=== PATIENT | male | born 1935 | race African-American/Black ===

== ENCOUNTER 2016-07-25 18:51 | Emergency (ER) | payer OTHER, BC ==
[~2016-07-25 18:51] MED LIST: ASAB PO; ASMANEX INH; ATV1 PO; BP MED; CETIRIZINE HCL5 MG PO; DUONEB INH; INHALER; LIPITOR40 PO; LOP25 PO; LOP50 PO; MULTIVIT/MIN PO; MULTIVITAMI1 PO; NITROQUICK0.4 MG SL; NORV10 PO; PROAIR HFA INH; PROVENTSOL INH; PROVHFA INH; REM15 PO; SPIRIVA INH; UROXATRAL PO; VASOTEC10 PO; ZOCOR40 PO
[2016-07-25 19:18] LABS: BASOPHILS 0.2 %; BASOPHILS ABSOLUTE 0.02 10/3/uL (0.0-0.16); EOSINOPHILS 5.8 %; EOSINOPHILS ABSOLUTE 0.49 10/3/uL (0.0-0.53); HEMOGLOBIN 14.7 g/dL (13.6-17.8); IMMATURE GRANULOCYTES 0.4 %; IMMATURE GRANULOCYTES ABSOLUTE 0.03 10/3/uL (0.0-0.11); LYMPHOCYTES 22.5 %; LYMPHOCYTES ABSOLUTE 1.89 10/3/uL (0.67-4.30); MEAN CORPUS HGB CONC 33.9 g/dL (32.0-36.0); MEAN CORPUSCULAR HEMOGLOB 32.5 pg (26.0-34.0); MEAN CORPUSCULAR VOLUME 95.6 fL (80-100); MEAN PLATELET VOLUME 11.2 fL (9.2-13.0); MONOCYTES 7.7 %; MONOCYTES ABSOLUTE 0.65 10/3/uL (0.21-1.20); NEUTROPHILS 63.4 %; NEUTROPHILS ABSOLUTE 5.31 10/3/uL (2.02-8.40); PLATELET COUNT 182 10/3/uL (150-400); RBC DISTRIBUTION WIDTH 15.1 % (12.0-16.0); RED CELL COUNT 4.53 10/6/uL (4.7-6.1); WHITE BLOOD CELLS 8.4 10/3/uL (4.5-10.5)
[2016-07-25 19:21] LABS: HEMATOCRIT 43.3 % (40.0-51.0); MANUAL DIFF NO %
[2016-07-25 19:35] LABS: BUN (BLOOD UREA NITROGEN) 19 MG/DL (6-23); CALCIUM, SERUM 9.2 MG/DL (8.5-10.4); CHEST PAIN PROFILE TAT 0 Hrs 21 Mins; CHLORIDE, SERUM 105 MMOL/L (96-112); CO2 (CARBON DIOXIDE) 29 MMOL/L (24-34); CREATININE 1.45 MG/DL (0.70-1.30); GFR AFRICAN AMERICAN 53 ML/MIN (>=60); GFR NON AFRICAN AMERICAN 45 ML/MIN (>=60); POTASSIUM, SERUM 3.4 MMOL/L (3.5-5.3); SODIUM, SERUM 144 MMOL/L (135-148); TROPONIN I <0.02 NG/ML (<0.05)
[2016-07-25 19:37] LABS: GLUCOSE, SERUM 59 MG/DL (60-99)
[2016-07-25 19:42] LABS: PLATELET ESTIMATE ADQ (ADEQUATE); SPHEROCYTES FEW (3-10/OIF)
[2016-08-15] MEDS ORDERED: P10 PO (12:32)
[2016-08-15] MEDS ORDERED: PULRESP.5 INH (12:36)
[2016-08-15] MEDS ORDERED: BROVANA15 MCG INH (12:38)
[2016-09-16] MEDS ORDERED: P20 PO (16:48)
== END 2016-07-25 20:16 | disposition left against medical advice (07) ==
LOC: ER 18:51
PROVIDERS: Emergency Medicine
DX: R06.02 Shortness of breath (principal); Z53.21 Procedure and treatment not carried out due to patient leaving prior to being seen by health care provider
CPT/HCPCS: 71020; 80048; 83735; 83880; 84484; 85025; 85610; 85730; 93005

== ENCOUNTER 2016-07-26 19:09 | Emergency (ER) | payer BC, OTHER ==
[2016-07-26 17:36] LABS: INSTRUMENT SERIAL # 8087; PCO2 (CO2 TENSION) 42 MMHG (35-45); PO2 (O2 TENSION) 65 MMHG (79-93); pH 7.42 (7.37-7.43)
[2016-07-26 17:37] LABS: ALLENS TEST Pos; BE (BASE EXCESS) 1.7 MEQ/L (0 +/- 2.5); CARBOXYHEMOGLOBIN 1.6 % (0-3); HCO3 (ACTUAL BICARBONATE) 26.4 MEQ/L (23-27); HEMOBLOGIN CONTENT 13.6 G/DL (14-18); METHEMOGLOBIN 0.4 % (0-3); O2 CONTENT 17.4 VOL% (18-24); SAMPLE Arterial
[2016-07-26 18:25] LABS: BASOPHILS 0.3 %; BASOPHILS ABSOLUTE 0.03 10/3/uL (0.0-0.16); EOSINOPHILS 2.8 %; EOSINOPHILS ABSOLUTE 0.28 10/3/uL (0.0-0.53); ER CBC TAT 0 Hrs 03 Mins; HEMATOCRIT 41.3 % (40.0-51.0); HEMOGLOBIN 13.7 g/dL (13.6-17.8); IMMATURE GRANULOCYTES 0.3 %; IMMATURE GRANULOCYTES ABSOLUTE 0.03 10/3/uL (0.0-0.11); LYMPHOCYTES 12.4 %; LYMPHOCYTES ABSOLUTE 1.25 10/3/uL (0.67-4.30); MEAN CORPUS HGB CONC 33.2 g/dL (32.0-36.0); MEAN CORPUSCULAR HEMOGLOB 32.2 pg (26.0-34.0); MEAN CORPUSCULAR VOLUME 97.2 fL (80-100); MONOCYTES 3.5 %; MONOCYTES ABSOLUTE 0.35 10/3/uL (0.21-1.20); NEUTROPHILS 80.7 %; NEUTROPHILS ABSOLUTE 8.17 10/3/uL (2.02-8.40); PLATELET COUNT 203 10/3/uL (150-400); RBC DISTRIBUTION WIDTH 15.3 % (12.0-16.0); RED CELL COUNT 4.25 10/6/uL (4.7-6.1); WHITE BLOOD CELLS 10.1 10/3/uL (4.5-10.5)
[2016-07-26 18:27] LABS: MANUAL DIFF NO %
[2016-07-26 18:38] LABS: BUN (BLOOD UREA NITROGEN) 20 MG/DL (6-23); CALCIUM, SERUM 8.9 MG/DL (8.5-10.4); CHLORIDE, SERUM 108 MMOL/L (96-112); CO2 (CARBON DIOXIDE) 27 MMOL/L (24-34); CREATININE 1.36 MG/DL (0.70-1.30); GFR AFRICAN AMERICAN 57 ML/MIN (>=60); GFR NON AFRICAN AMERICAN 49 ML/MIN (>=60); POTASSIUM, SERUM 3.5 MMOL/L (3.5-5.3); SODIUM, SERUM 143 MMOL/L (135-148)
[2016-07-26 18:42] LABS: GLUCOSE, SERUM 85 MG/DL (60-99)
[2016-08-15] MEDS ORDERED: P10 PO (12:32)
[2016-08-15] MEDS ORDERED: PULRESP.5 INH (12:36)
[2016-08-15] MEDS ORDERED: BROVANA15 MCG INH (12:38)
[2016-09-16] MEDS ORDERED: P20 PO (16:48)
== END 2016-07-26 20:06 | disposition home or self-care (01) ==
LOC: ER 19:09
PROVIDERS: Emergency Medicine
DX: J44.9 Chronic obstructive pulmonary disease, unspecified (principal); F17.200 Nicotine dependence, unspecified, uncomplicated; I10 Essential (primary) hypertension; Z95.1 Presence of aortocoronary bypass graft; Z79.899 Other long term (current) drug therapy
CPT/HCPCS: 71010; 80048; 82805; 85025; 99285

== ENCOUNTER 2016-08-05 17:41 | Inpatient (IN) | payer BC, OTHER ==
--- NOTE | ~2016-08-05 | DS ---
Discharge Summary [facility] [address] [place]. [address] NAME: NAZ AMIN : 36 STATUS : DIS IN PAT#: [id number] AGE: 80 ADM/REG DATE : 08/05/16 MR#: [id number] REPORT SERV DATE: 08/09/16 DICTATED BY: ELIJAH MURRELL DATE: 08/08/16 REPORT STATUS : Draft TRANSCRIBED BY: MODL DATE: 08/08/16 ADMISSION DATE: 08/05/2016 DISCHARGE DATE: 08/08/2016 DISCHARGE DIAGNOSES: 1. Acute exacerbation of chronic obstructive pulmonary disease. 2. Chronic diastolic heart failure. 3. Right ventricular dysfunction by echocardiography. 4. Systemic hypertension. 5. Dementia with behavior disorder. 6. Coronary artery disease, post CABG. 7. History of prostate cancer, post radiation therapy. 8. Remote stroke. OPERATIONS AND PROCEDURES: None. PRESENT ILLNESS: This is a 80-year-old male, who was triaged in the emergency room on 08/05/2016 at 1541 hours, complaining of shortness of breath. After evaluation in the emergency room, he was thought to have a COPD exacerbation. He was referred to the Hospitalist Service for admission. He was seen by Dr. Botello. He was admitted as described on admission history and physical examination. ADDITIONAL HISTORY: Per Dr. Botello. PHYSICAL EXAMINATION: Per Dr. Botello. ADMISSION LABORATORY: Per Dr. Botello. HOSPITAL COURSE: He was admitted with an acute exacerbation of COPD. Of note was that in the emergency room with the DuoNeb and IV Solu-Medrol, he was symptomatically improved. It was felt that further in-hospital treatment was needed. He was admitted to [address] [place] [address]. His hospital care was assumed by the undersigned. An echocardiogram had been ordered on admission. When reviewed by the undersigned on 08/06/2016, it was noted that he had normal left ventricular systolic function. Mild diastolic function with a mildly enlarged right ventricle and mildly decreased systolic function. In view of these findings and his presentation, it was felt he should be evaluated for pulmonary emboli. A CTA chest was done, which showed no CT evidence of pulmonary embolus, mild to moderate centrilobular emphysema, upper lung zones, but no acute pulmonary disease. Of note was that motion degraded optimal exam. Medications initiated on admission including DuoNeb, Levaquin, and corticosteroids were continued. Discharge Summary [address] [place]. [address] NAME: NAZ AMIN : 36 STATUS : DIS IN PAT#: [id number] AGE: 80 ADM/REG DATE : 08/05/16 MR#: [id number] REPORT SERV DATE: 08/09/16 DICTATED BY: ELIJAH MURRELL DATE: 08/08/16 REPORT STATUS : Draft TRANSCRIBED BY: MODEstrella DATE: 08/08/16 By 08/08/2016, his dyspnea had improved, and he was felt to be back to his baseline state. His son was present, who cares for him. At this point of his hospitalization, it was felt that he had achieved a level of improvement and stability, and could be safely discharged home to the care of his son. He has in-home care, which will be continued. He will continue his home diet and activity. Medications at discharge will be aspirin 81 mg daily, Zyrtec 5 mg daily, Remeron 7.5 mg at bedtime, metoprolol 12.5 mg at bedtime, Combivent Respimat one puff four times daily, Ativan 1 mg at bedtime, DuoNeb q.i.d. as needed, Asmanex 2 puffs at bedtime, Levaquin 750 mg on Monday. His son plans to pursue [facility] and the [facility] to enhance the care for his father. Discharge time greater than 30 minutes. DD/NINA Elijah Murrell M.D. / [id number] CC: DO Lizette Escamilla
--- NOTE | ~2016-08-05 | HP ---
History And Physical [place] [id number] [facility], [place]. [address] NAME: NAZ AMIN : 36 STATUS : ADM IN PAT#: [id number] AGE: 80 ADM/REG DATE : 08/05/16 MR#: [id number] REPORT SERV DATE: 08/06/16 DICTATED BY: SAMMY SHETTY DATE: 08/05/16 REPORT STATUS : Draft TRANSCRIBED BY: NINA DATE: 08/05/16 DATE OF ADMISSION: 08/05/2016 CHIEF COMPLAINT: Shortness of breath. HISTORY OF PRESENT ILLNESS: This is a 80-year-old male who presented to the emergency room department with complaints of shortness of breath. The patient was brought to the emergency room by his grandson given concern of worsening shortness of breath. The patient has advanced dementia and is a poor historian. The rest of the H and P was from the patient's grandson as well as [employer] review. The patient was in his usual health until about a few weeks ago when family member noticed that the patient was complaining of intermittent shortness of breath with exertion and at rest. It was noted that the patient was using his albuterol nebulizer more frequently than usual. It was also noted that the patient continues to smoke cigarettes about two to three sticks a day. There was report of intermittent cough but denies any wheezing. No chest pain. No fever. No chills. Family members denies any bilateral leg swelling, orthopnea, PND, weight gain, presyncopal, palpitations, or syncopal episode. On arrival to the ER, the patient was noted to be having some dyspnea with diffuse wheezing and ABG was done that shows the patient was mildly hypoxic at PaO2 of 72. The patient received IV Solu-Medrol and DuoNeb with significant relief. At the time of my evaluation, the patient had no further episodes of wheezing, no further episodes of shortness of breath. PAST MEDICAL HISTORY: 1. Significant for COPD with ongoing tobacco use. 2. History of coronary artery disease with CABG. 3. Hypertension. SOCIAL HISTORY: The patient has continued to smoke heavily at home. The patient denies any recreational or illicit drug use. The patient currently lives with his grandson, who provides 24 hours care for him. FAMILY HISTORY: Denies any history of hypertension and diabetes in the family. ALLERGIES: ADVERSE REACTION TO SEROQUEL. MEDICATION LIST: 1. Lorazepam 1 mg p.o. at bedtime. 2. Mirtazapine 15 mg p.o. at bedtime. 3. Zyrtec 5 mg p.o. at bedtime. 4. Lopressor 25 mg p.o. at bedtime. 5. Aspirin 81 mg p.o. at bedtime. 6. DuoNeb inhaler three times daily. 7. Combivent inhaler one puff four times a day. 8. two puffs at bedtime. History And Physical [address] [address] NAME: NAZ AMIN : 36 STATUS : ADM IN [facility]#: [id number] AGE: 80 ADM/REG DATE : 08/05/16 MR#: [id number] REPORT SERV DATE: 08/06/16 DICTATED BY: SAMMY SHETTY DATE: 08/05/16 REPORT STATUS : Draft TRANSCRIBED BY: NINA DATE: 08/05/16 REVIEW OF SYSTEMS: A 12-point review of system conducted essentially negative, positive finding as per HPI. PHYSICAL EXAMINATION: VITAL SIGNS: Blood pressure 187/102, temperature 97.7, saturating 100% on room air, pulse 88 beats per minute. GENERAL: Not in any respiratory distress at the time of my evaluation. GENERAL: Not in any acute distress. He is able to speak in full sentences. HEENT: Normocephalic, atraumatic. Extraocular muscles intact. Pupils equal, round, and reactive. Not pale. No jaundice. NECK: Supple. No JVD. CHEST: Equal expansion. No area of tenderness. LUNGS: Clear to auscultation bilaterally. No wheezes. No rhonchi. CARDIOVASCULAR: Regular rate and rhythm. S1 and S2. No murmurs, no rubs, or gallops. ABDOMEN: Bowel sounds normoactive. Soft, nontender. No palpably enlarged organomegaly. No area of tenderness. EXTREMITIES: No pedal edema. Peripheral pulses palpable. NEUROLOGIC: Alert but oriented x1. Strength in all extremities 5/5. LABORATORY DATA: 1. Chemistry: Sodium 145, potassium 3.6, chloride 105, bicarb 29, BUN 16, creatinine 1.31, glucose 96, calcium 8.9. 2. ABG: PH 7.41, pCO2 43, PaO2 72. 3. Hematology: WBC 11.5, hemoglobin 13.7, hematocrit 40.0, platelets 286, MCV 95.5. 4. Chest x-ray: No area of pulmonary infiltrate or pulmonary vascular congestion. Increase inspiratory lung anderson in keeping with COPD per my reading. Official report pending. 5. EKG: Sinus rhythm. No T-wave ST-segment deviation. SUMMARY: This is a 80-year-old male with history of advanced dementia, who presented with concerns of shortness of breath per family report with concern for COPD exacerbation. ASSESSMENT AND PLAN: 1. Chronic obstructive pulmonary disease exacerbation. Per the ER physician, the patient was wheezing on presentation. This wheezing was significantly improved with DuoNeb and IV Solu-Medrol. At the time of my examination, the patient was saturating 98% on room air. No further episodes of wheezing. At this time, I will switch the patients from IV prednisone to p.o. prednisone 20 mg p.o. daily. We will continue levofloxacin IV. We will also continue DuoNeb. We will continue Symbicort and Spiriva. 2. We will continue to monitor the patient's respiratory status. 3. Coronary artery disease. No evidence of chest pain at this time. We will continue the patient's home dose of beta-blockers and will continue to monitor. 4. Hypertension. We will resume the patient's antihypertensives and continue to monitor blood pressure closely. hydralazine 10 mg every six hours/p.r.n. for blood pressure greater than 180/110. History And Physical [address] [address] NAME: NAZ AMIN : 36 STATUS : ADM IN [facility]#: [id number] AGE: 80 ADM/REG DATE : 08/05/16 MR#: [id number] REPORT SERV DATE: 08/06/16 DICTATED BY: SAMMY SHETTY DATE: 08/05/16 REPORT STATUS : Draft TRANSCRIBED BY: MODL DATE: 08/05/16 5. Advanced dementia. The patient has history of adverse reaction to Seroquel. We will avoid all sedating medication at this point. We will continue one-on-one reorientation for the patient. 6. Code Status: Full code. 7. Admission Disposition: Inpatient. 8. DVT prophylaxis: Subcutaneous heparin. IOO/MODL Sammy Shetty MD / [id number] CC: DO LENORE Escamilla SHANNON BRITTANY
[2016-08-05 16:14] LABS: BASOPHILS 0.3 %; BASOPHILS ABSOLUTE 0.03 10/3/uL (0.0-0.16); EOSINOPHILS 4.6 %; EOSINOPHILS ABSOLUTE 0.53 10/3/uL (0.0-0.53); ER CBC TAT 0 Hrs 03 Mins; HEMOGLOBIN 13.7 g/dL (13.6-17.8); IMMATURE GRANULOCYTES 0.2 %; IMMATURE GRANULOCYTES ABSOLUTE 0.02 10/3/uL (0.0-0.11); LYMPHOCYTES 12.6 %; LYMPHOCYTES ABSOLUTE 1.45 10/3/uL (0.67-4.30); MEAN CORPUS HGB CONC 34.3 g/dL (32.0-36.0); MEAN CORPUSCULAR HEMOGLOB 32.7 pg (26.0-34.0); MEAN CORPUSCULAR VOLUME 95.5 fL (80-100); MONOCYTES 7.8 %; NEUTROPHILS 74.5 %; NEUTROPHILS ABSOLUTE 8.59 10/3/uL (2.02-8.40); RBC DISTRIBUTION WIDTH 15.9 % (12.0-16.0); RED CELL COUNT 4.19 10/6/uL (4.7-6.1); WHITE BLOOD CELLS 11.5 10/3/uL (4.5-10.5)
[2016-08-05 16:16] LABS: MANUAL DIFF NO %; PLATELET COUNT 286 10/3/uL (150-400)
[2016-08-05 16:26] LABS: CALCIUM, SERUM 8.9 MG/DL (8.5-10.4); CHLORIDE, SERUM 105 MMOL/L (96-112); CO2 (CARBON DIOXIDE) 29 MMOL/L (24-34); CREATININE 1.31 MG/DL (0.70-1.30); GFR AFRICAN AMERICAN 60 ML/MIN (>=60); GFR NON AFRICAN AMERICAN 51 ML/MIN (>=60); GLUCOSE, SERUM 96 MG/DL (60-99); POTASSIUM, SERUM 3.6 MMOL/L (3.5-5.3); SODIUM, SERUM 145 MMOL/L (135-148)
[2016-08-05 16:27] LABS: BUN (BLOOD UREA NITROGEN) 16 MG/DL (6-23)
[2016-08-05 17:23] LABS: ALLENS TEST Pos; BE (BASE EXCESS) 1.9 MEQ/L (0 +/- 2.5); CARBOXYHEMOGLOBIN 1.9 % (0-3); DEVICE BIPAP 18/5; HCO3 (ACTUAL BICARBONATE) 26.8 MEQ/L (23-27); HEMOBLOGIN CONTENT 13.5 G/DL (14-18); INSTRUMENT SERIAL # 8087; METHEMOGLOBIN 0.3 % (0-3); O2 CONTENT 17.5 VOL% (18-24); OPERATOR ID 14335; PCO2 (CO2 TENSION) 43 MMHG (35-45); PO2 (O2 TENSION) 72 MMHG (79-93); SAMPLE Arterial; pH 7.41 (7.37-7.43)
[2016-08-05] MEDS ORDERED: REM15 PO (18:31)
[2016-08-05] MEDS ORDERED: ATV1 PO (18:31)
[2016-08-05] MEDS ORDERED: LOP25 PO (18:34)
[2016-08-05] MEDS ORDERED: DUONEB INH (18:35)
[2016-08-05] MEDS ORDERED: COMBIVENT RESPIM4 GM INH (18:35)
[2016-08-05] MEDS ORDERED: ASMANEX PO (18:36)
[2016-08-06 00:51] LABS: ALBUMIN 3.3 G/DL (3.5-5.0); BUN (BLOOD UREA NITROGEN) 17 MG/DL (6-23); CALCIUM, SERUM 8.7 MG/DL (8.5-10.4); CHLORIDE, SERUM 107 MMOL/L (96-112); CO2 (CARBON DIOXIDE) 26 MMOL/L (24-34); CREATININE 1.23 MG/DL (0.70-1.30); GFR AFRICAN AMERICAN 64 ML/MIN (>=60); GFR NON AFRICAN AMERICAN 55 ML/MIN (>=60); GLUCOSE, SERUM 138 MG/DL (60-99); POTASSIUM, SERUM 3.6 MMOL/L (3.5-5.3); SODIUM, SERUM 144 MMOL/L (135-148)
[2016-08-06 01:41] LABS: PROCALCITONIN <0.05 ng/mL (<0.5)
[2016-08-06 07:54] LABS: BASOPHILS 0 %; EOSINOPHILS 0 %; HEMATOCRIT 38.9 % (40.0-51.0); HEMOGLOBIN 13.6 g/dL (13.6-17.8); IMMATURE GRANULOCYTES 0.2 %; IMMATURE GRANULOCYTES ABSOLUTE 0.02 10/3/uL (0.0-0.11); LYMPHOCYTES 8.5 %; LYMPHOCYTES ABSOLUTE 0.97 10/3/uL (0.67-4.30); MEAN CORPUSCULAR HEMOGLOB 32.2 pg (26.0-34.0); MEAN PLATELET VOLUME 10.3 fL (9.2-13.0); MONOCYTES 4.3 %; MONOCYTES ABSOLUTE 0.49 10/3/uL (0.21-1.20); NEUTROPHILS ABSOLUTE 9.98 10/3/uL (2.02-8.40); PLATELET COUNT 284 10/3/uL (150-400); RBC DISTRIBUTION WIDTH 15.6 % (12.0-16.0); RED CELL COUNT 4.23 10/6/uL (4.7-6.1); WHITE BLOOD CELLS 11.5 10/3/uL (4.5-10.5)
[2016-08-06 07:57] LABS: MANUAL DIFF NO %
[2016-08-06 08:08] LABS: ALBUMIN 3.5 G/DL (3.5-5.0); BUN (BLOOD UREA NITROGEN) 19 MG/DL (6-23); CALCIUM, SERUM 9.1 MG/DL (8.5-10.4); CHLORIDE, SERUM 107 MMOL/L (96-112); CO2 (CARBON DIOXIDE) 26 MMOL/L (24-34); CREATININE 1.28 MG/DL (0.70-1.30); GFR AFRICAN AMERICAN 61 ML/MIN (>=60); GFR NON AFRICAN AMERICAN 53 ML/MIN (>=60); GLUCOSE, SERUM 119 MG/DL (60-99); POTASSIUM, SERUM 4.2 MMOL/L (3.5-5.3); SODIUM, SERUM 143 MMOL/L (135-148)
[2016-08-06 08:09] LABS: PHOSPHORUS, SERUM 3.4 MG/DL (2.5-4.5)
[2016-08-06 09:06] LABS: PROCALCITONIN <0.05 ng/mL (<0.5)
[2016-08-07 07:21] LABS: CALCIUM, SERUM 8.6 MG/DL (8.5-10.4); CHLORIDE, SERUM 107 MMOL/L (96-112); CO2 (CARBON DIOXIDE) 22 MMOL/L (24-34); CREATININE 1.23 MG/DL (0.70-1.30); GFR AFRICAN AMERICAN 64 ML/MIN (>=60); GFR NON AFRICAN AMERICAN 55 ML/MIN (>=60); SODIUM, SERUM 143 MMOL/L (135-148)
[2016-08-07 07:24] LABS: BUN (BLOOD UREA NITROGEN) 24 MG/DL (6-23); GLUCOSE, SERUM 89 MG/DL (60-99); POTASSIUM, SERUM 4.1 MMOL/L (3.5-5.3)
[2016-08-07 15:38] LABS: ALBUMIN 2.9 G/DL (3.5-5.0); DIRECT BILIRUBIN 0.1 MG/DL (0.0-0.4); INDIRECT BILIRUBIN(NOT ORDER) 0.5 MG/DL (0.1-0.9); TOTAL BILIRUBIN 0.6 MG/DL (0-1.2); TOTAL PROTEIN 5.8 G/DL (6.0-8.5)
[2016-08-08] MEDS ORDERED: LEVAQUIN750 MG PO (11:26)
[2016-08-15] MEDS ORDERED: P10 PO (12:32)
[2016-08-15] MEDS ORDERED: PULRESP.5 INH (12:36)
[2016-08-15] MEDS ORDERED: BROVANA15 MCG INH (12:38)
[2016-09-16] MEDS ORDERED: P20 PO (16:48)
== END 2016-08-08 12:11 | disposition home or self-care (01) | DRG 191 ==
LOC: ER 17:41 → 6NO 18:30
PROVIDERS: Emergency Medicine; Hospitalist; Internal Medicine
DX: J44.1 Chronic obstructive pulmonary disease with (acute) exacerbation (principal); I50.32 Chronic diastolic (congestive) heart failure; I11.9 Hypertensive heart disease without heart failure; I13.0 Hypertensive heart and chronic kidney disease with heart failure and stage 1 through stage 4 chronic kidney disease, or unspecified chronic kidney disease; F03.91 Unspecified dementia, unspecified severity, with behavioral disturbance; N18.3 Chronic kidney disease, stage 3 (moderate); I25.10 Atherosclerotic heart disease of native coronary artery without angina pectoris; Z95.1 Presence of aortocoronary bypass graft; Z85.46 Personal history of malignant neoplasm of prostate; Z92.3 Personal history of irradiation; Z86.73 Personal history of transient ischemic attack (TIA), and cerebral infarction without residual deficits
CPT/HCPCS: 36600; 71010; 71275; 80048; 80069; 80076; 82805; 83735; 84145; 85025; 93005; 93306; 94640; 96374; 99291; A9270-GY; J1956; J2930

== ENCOUNTER 2016-09-02 13:35 | Emergency (ER) | payer BC, OTHER ==
[2016-09-02 12:10] LABS: ALLENS TEST Pos; CARBOXYHEMOGLOBIN 2.1 % (0-3); HCO3 (ACTUAL BICARBONATE) 27.8 MEQ/L (23-27); HEMOBLOGIN CONTENT 14.2 G/DL (14-18); INSTRUMENT SERIAL # 8087; METHEMOGLOBIN 0.2 % (0-3); OPERATOR ID 14335; PCO2 (CO2 TENSION) 48 MMHG (35-45); PO2 (O2 TENSION) 88 MMHG (79-93); SAMPLE Arterial; pH 7.38 (7.37-7.43)
[2016-09-02 12:37] LABS: BASOPHILS 0.2 %; BASOPHILS ABSOLUTE 0.02 10/3/uL (0.0-0.16); EOSINOPHILS 3.3 %; HEMATOCRIT 41.8 % (40.0-51.0); HEMOGLOBIN 14.3 g/dL (13.6-17.8); IMMATURE GRANULOCYTES 0.3 %; IMMATURE GRANULOCYTES ABSOLUTE 0.04 10/3/uL (0.0-0.11); LYMPHOCYTES 14.4 %; LYMPHOCYTES ABSOLUTE 1.77 10/3/uL (0.67-4.30); MANUAL DIFF NO %; MEAN CORPUS HGB CONC 34.2 g/dL (32.0-36.0); MEAN CORPUSCULAR HEMOGLOB 32.4 pg (26.0-34.0); MEAN CORPUSCULAR VOLUME 94.6 fL (80-100); MEAN PLATELET VOLUME 10.5 fL (9.2-13.0); MONOCYTES 8.6 %; MONOCYTES ABSOLUTE 1.06 10/3/uL (0.21-1.20); NEUTROPHILS 73.2 %; NEUTROPHILS ABSOLUTE 8.97 10/3/uL (2.02-8.40); PLATELET COUNT 224 10/3/uL (150-400); RBC DISTRIBUTION WIDTH 17.9 % (12.0-16.0); RED CELL COUNT 4.42 10/6/uL (4.7-6.1); WHITE BLOOD CELLS 12.3 10/3/uL (4.5-10.5)
[2016-09-02 12:38] LABS: ER CBC TAT 0 Hrs 07 Mins
[2016-09-02 12:48] LABS: CALCIUM, SERUM 8.8 MG/DL (8.5-10.4); CHLORIDE, SERUM 109 MMOL/L (96-112); CO2 (CARBON DIOXIDE) 29 MMOL/L (24-34); CREATININE 1.27 MG/DL (0.70-1.30); GFR AFRICAN AMERICAN 62 ML/MIN (>=60); GFR NON AFRICAN AMERICAN 53 ML/MIN (>=60); SODIUM, SERUM 145 MMOL/L (135-148)
[2016-09-02 12:50] LABS: BUN (BLOOD UREA NITROGEN) 15 MG/DL (6-23); GLUCOSE, SERUM 98 MG/DL (60-99)
[~2016-09-02 13:35] MED LIST changes: +ASMANEX PO; +BROVANA15 MCG INH; +COMBIVENT RESPIM4 GM INH; +LEVAQUIN750 MG PO; +P10 PO; +PULRESP.5 INH
[2016-09-16] MEDS ORDERED: P20 PO (16:48)
== END 2016-09-02 15:00 | disposition home or self-care (01) ==
LOC: ER 13:35
PROVIDERS: Emergency Medicine
DX: J44.9 Chronic obstructive pulmonary disease, unspecified (principal); I11.0 Hypertensive heart disease with heart failure; I50.9 Heart failure, unspecified; F03.90 Unspecified dementia, unspecified severity, without behavioral disturbance, psychotic disturbance, mood disturbance, and anxiety; Z86.73 Personal history of transient ischemic attack (TIA), and cerebral infarction without residual deficits; Z88.8 Allergy status to other drugs, medicaments and biological substances; Z79.82 Long term (current) use of aspirin; Z79.899 Other long term (current) drug therapy
CPT/HCPCS: 36600; 71010; 80048; 82805; 83880; 85025; 93005; 94640; 96374; 99285; J2930

== ENCOUNTER 2016-09-28 00:36 | Observation (INO) | payer BC ==
--- NOTE | ~2016-09-28 | DS ---
Discharge Summary [facility] [address] [place]. [address] NAME: NAZ AMIN : 36 STATUS : DIS Gracia PAT#: [id number] AGE: 80 ADM/REG DATE : 09/28/16 MR#: [id number] REPORT SERV DATE: 10/01/16 DICTATED BY: UZMA MARCUS II DATE: 09/30/16 REPORT STATUS : Draft TRANSCRIBED BY: MODL DATE: 09/30/16 ADMISSION DATE: 09/28/2016 DISCHARGE DATE: 09/30/2016 DISCHARGE DIAGNOSES: 1. Acute exacerbation of chronic obstructive pulmonary disease. 2. Acute hypoxic and hypercapnic respiratory failure. 3. Dementia with sundowning. 4. Acute kidney injury on chronic kidney disease stage III. 5. Leukocytosis steroid-induced. BRIEF HISTORY OF PRESENT ILLNESS: The patient is a 80-year-old male with the above history who presented to [facility] due to shortness of breath and found likely being acute COPD exacerbation with initial ABG with pH of 7.31, PCO2 of 34, PO2 of 129 on 36%. For detailed history and physical examination, please see Dr. Huntley's note from 09/28/2016. HOSPITAL COURSE: After admission, he was given Solu-Medrol nebs and inhalers for COPD optimization as well as azithromycin and Rocephin. His white count was 17 on admission, however, procalcitonin was less than 0.05. He was afebrile. Vitals were stable and chest x ray showed no acute process. His lungs actually cleared fairly quickly and clearly not requiring any oxygen by second day. From a respiratory standpoint, he will be continued on steroids with taper over 4 days and resume his home inhalers. We will also complete a five- day course of azithromycin and have him resume home health with PT upon discharge. Currently, he does have some nocturnal agitation, confusion, and has apparent dementia. He lives with his grandson and is reportedly still smoking. There was some report by the patient's mother that the patient was being given excessive amounts of Ativan at home during the day though the grandson, who actually takes care of him denies this. The reports are somewhat unverifiable, but we will have manager social services evaluate the home environment and may at some point need APS investigation, but the grandson appears to deny this and has a good understanding of the patient's medications and care at home. Otherwise at this point, he is stable for discharge. Again counseled the patient to discontinue smoking and try nicotine patch. DISCHARGE MEDICATIONS: 1. Aspirin 81 mg p.o. daily. 2. Zyrtec 10 mg p.o. daily. 3. Remeron 30 mg p.o. q.h.s. 4. DuoNeb q.4 hours p.r.n. 5. Atrovent neb q.12 hours. 6. Albuterol 2 puffs q.4 hours p.r.n. 7. Dulera 2 puffs inhaled b.i.d. 8. Prednisone taper four days. DISCHARGE INSTRUCTIONS: The patient will follow up with his PCP in one to two weeks. Discharge Summary [address] [address] NAME: NAZ AMIN : 36 STATUS : DIS Gracia PAT#: [id number] AGE: 80 ADM/REG DATE : 09/28/16 MR#: [id number] REPORT SERV DATE: 10/01/16 DICTATED BY: UZMA MARCUS II DATE: 09/30/16 REPORT STATUS : Draft TRANSCRIBED BY: NINA DATE: 09/30/16 EMILY/NINA Uzma Marcus II, MD / [id number] CC: MD Yousuf Blackwood II, M.D.
--- NOTE | ~2016-09-28 | HP ---
History And Physical [place] [address] [place]. [address] NAME: NAZ AMIN : 36 STATUS : ADM Gracia PAT#: [id number] AGE: 80 ADM/REG DATE : 09/28/16 MR#: [id number] REPORT SERV DATE: 09/28/16 DICTATED BY: HARDIK PURVIS DATE: 09/28/16 REPORT STATUS : Draft TRANSCRIBED BY: MODL DATE: 09/28/16 DATE OF ADMISSION: 09/28/2016 CHIEF COMPLAINT: Shortness of breath. HISTORY OF PRESENT ILLNESS: This is a 80-year-old male, who has a history of COPD and current tobacco use, history of coronary artery disease with CABG done, who presents to the emergency room at [facility] with the above-mentioned complaint. History is obtained from Mr. Amin, although not much could be obtained from him as he is such a poor historian. No other family member is present at this time. According to Mr. Amin, he had been in his usual state of health and somewhere in the last few days, he started having shortness of breath, and he said he had some pain under his left arm. He really is unable to elaborate on any of his symptoms, but keeps repeating the same thing. He also states, he tried using his inhalers, or medicines that he had and that did not help. Finally, he decided to come to the emergency room. When asked about the pain under his arm, he again is not able to elaborate in anyway. In the emergency room, initial workup revealed he had an acute exacerbation of his COPD and despite several treatments and medications, did not improve. He continued to wheeze and Hospitalist Service is asked to admit him for further evaluation and treatment. At the time of my evaluation, Mr. Amin denied any chest pain or palpitations. He did not appear to have any orthopnea. He says, he had a cough, but is unable to say anything further. He denied him hemoptysis, night sweats, or weight loss. He has had no recent falls or loss of consciousness. Did not have any fevers or chills. He denied nausea, vomiting, diarrhea, or any bleeding from anywhere. No other history of recent travel or exposures other than those mentioned above. He has about [id number] history of smoking and continues to smoke today. He lives with his grandson, who smokes indoors as well. FAMILY HISTORY: Noncontributory. MEDICATIONS: At home were reviewed by me in the chart today and reordered by me. REVIEW OF SYSTEMS: As in history of present illness. All other systems were reviewed in detail and quite unremarkable. PHYSICAL EXAMINATION: GENERAL: This is a pleasant 80-year-old, not in any acute distress. HEENT: His head is atraumatic, normocephalic. He is alert, awake, oriented to time, place, and person. Pupils are equal, reacting to light and accommodating. External ocular muscles are intact. Membranes are moist and pink. Sclerae are nonicteric. NECK: Supple with no jugular venous distention, lymphadenopathy, or thyromegaly. LUNGS: Auscultation of his lungs revealed diminished air entry bilaterally with diffuse expiratory wheezes bilaterally. There were no rales. Trachea appeared to be in midline. History And Physical [address] [address] NAME: NAZ AMIN : 36 STATUS : ADM Gracia PAT#: [id number] AGE: 80 ADM/REG DATE : 09/28/16 MR#: [id number] REPORT SERV DATE: 09/28/16 DICTATED BY: HARDIK PURVIS DATE: 09/28/16 REPORT STATUS : Draft TRANSCRIBED BY: NINA DATE: 09/28/16 HEART: Auscultation of his heart revealed normal rate and rhythm with no murmurs, rubs, or gallops appreciated. ABDOMEN: Nontender. Bowel sounds are present. EXTREMITIES: Showed no cyanosis, clubbing, or edema. NEUROLOGIC: Grossly intact with no focal sensory or motor deficits. Higher functions appeared intact. He was able to move all four extremities. VITAL SIGNS: His vital signs today showed a temperature of 97.4, pulse was 81, respirations 22 a minute, and blood pressure upon arrival was 157/107, oxygen saturations were 100%, breathing 2 L of oxygen via nasal cannula. LABORATORY DATA: Reviewed on the [employer] system showed a pH of 7.31 on arterial blood gas, pCO2 was 54, PO2 129, and bicarb was 26.3, this was on 36% FiO2. A repeat blood gas after several treatments showed a pH of 7.36, pCO2 was 46, PO2 of 61, and bicarb was 25.3, this was on room air. CMP showed a sodium of 147, potassium was 3.9, chloride 108, and CO2 of 27, BUN was 16 with a creatinine of 1.43 which is about his baseline. His blood glucose was 115. [place] [address]. Hemoglobin was 14.9, hematocrit 43.4, and platelet count was 273,000. Urinalysis was not done today. Films of the chest x-ray were reviewed by me on the PACS today and interpreted by me. Per my interpretation, there was normal bony architecture with no cardiomegaly. Lung anderson appeared clear with no lobar consolidations or pleural effusions seen. There is prior sternotomy. A 12-lead EKG done in the emergency room was reviewed and interpreted by me. Per my interpretation, there is normal sinus rhythm at a rate of [address]-T changes. IMPRESSION: 1. Shortness of breath. 2. Chronic obstructive pulmonary disease with acute exacerbation. 3. Leukocytosis. 4. Coronary artery disease with coronary artery bypass graft. 5. Tobacco use. PLAN: We will admit Mr. Amin to the Hospitalist Service with defensive monitoring for a 24-hour observation period. We will continue aggressive bronchodilator treatments, continue supplemental oxygen therapy at this time. Start him on inhaled and IV corticosteroids. It is quite unclear why he has leukocytosis at this time. He is a poor historian and is unable to tell me if he had been on steroids recently. Meanwhile, we will go ahead and get cultures and start him on empiric IV antibiotics for community-acquired pneumonia. We will also check a lactate and procalcitonin level and if necessary by tomorrow if Gram stains are negative, we will discontinue. He needs to quit smoking and I have discussed this with him as well. We will also place him on unfractionated heparin for DVT prophylaxis while here. I have discussed the above plans with the patient. His questions were answered and he is agreeable to the above recommendations. Please see today's orders for details. Hospitalist Service will be following him during his stay here. MR/MODL History And Physical [address] [place]. [address] NAME: NAZ AMIN : 36 STATUS : ADM Gracia PAT#: [id number] AGE: 80 ADM/REG DATE : 09/28/16 MR#: [id number] REPORT SERV DATE: 09/28/16 DICTATED BY: HARDIK PURVIS DATE: 09/28/16 REPORT STATUS : Draft TRANSCRIBED BY: NINA DATE: 09/28/16 Hardik Purvis M.D. / [id number] CC: Hi Stanley II, MD
[~2016-09-28 00:36] MED LIST changes: +P20 PO
[2016-09-28 01:13] LABS: BE (BASE EXCESS) -0.8 MEQ/L (0 +/- 2.5); CARBOXYHEMOGLOBIN 1.7 % (0-3); DEVICE NC; HCO3 (ACTUAL BICARBONATE) 26.3 MEQ/L (23-27); HEMOBLOGIN CONTENT 14.8 G/DL (14-18); INSTRUMENT SERIAL # 8087; METHEMOGLOBIN 0.4 % (0-3); O2 CONTENT 20.2 VOL% (18-24); PCO2 (CO2 TENSION) 54 MMHG (35-45); PO2 (O2 TENSION) 129 MMHG (79-93); SAMPLE Arterial; pH 7.31 (7.37-7.43)
[2016-09-28 01:59] LABS: BASOPHILS 0.1 %; BASOPHILS ABSOLUTE 0.02 10/3/uL (0.0-0.16); EOSINOPHILS 1.5 %; EOSINOPHILS ABSOLUTE 0.26 10/3/uL (0.0-0.53); ER CBC TAT 0 Hrs 04 MinsNP; HEMATOCRIT 43.4 % (40.0-51.0); HEMOGLOBIN 14.9 g/dL (13.6-17.8); IMMATURE GRANULOCYTES 0.2 %; IMMATURE GRANULOCYTES ABSOLUTE 0.04 10/3/uL (0.0-0.11); LYMPHOCYTES 14.9 %; LYMPHOCYTES ABSOLUTE 2.67 10/3/uL (0.67-4.30); MANUAL DIFF NO %; MEAN CORPUS HGB CONC 34.3 g/dL (32.0-36.0); MEAN CORPUSCULAR HEMOGLOB 32.6 pg (26.0-34.0); MEAN PLATELET VOLUME 11.4 fL (9.2-13.0); MONOCYTES 5.9 %; MONOCYTES ABSOLUTE 1.05 10/3/uL (0.21-1.20); NEUTROPHILS 77.4 %; NEUTROPHILS ABSOLUTE 13.86 10/3/uL (2.02-8.40); PLATELET COUNT 273 10/3/uL (150-400); RBC DISTRIBUTION WIDTH 16.9 % (12.0-16.0); RED CELL COUNT 4.57 10/6/uL (4.7-6.1); WHITE BLOOD CELLS 17.9 10/3/uL (4.5-10.5)
[2016-09-28 02:10] LABS: CALCIUM, SERUM 9.4 MG/DL (8.5-10.4); CHLORIDE, SERUM 108 MMOL/L (96-112); CO2 (CARBON DIOXIDE) 27 MMOL/L (24-34); CREATININE 1.43 MG/DL (0.70-1.30); GFR AFRICAN AMERICAN 54 ML/MIN (>=60); GFR NON AFRICAN AMERICAN 46 ML/MIN (>=60); POTASSIUM, SERUM 3.9 MMOL/L (3.5-5.3); SODIUM, SERUM 144 MMOL/L (135-148)
[2016-09-28 02:11] LABS: BUN (BLOOD UREA NITROGEN) 16 MG/DL (6-23); GLUCOSE, SERUM 115 MG/DL (60-99)
[2016-09-28 02:31] LABS: BE (BASE EXCESS) -0.5 MEQ/L (0 +/- 2.5); CARBOXYHEMOGLOBIN 1.8 % (0-3); HCO3 (ACTUAL BICARBONATE) 25.3 MEQ/L (23-27); HEMOBLOGIN CONTENT 14.8 G/DL (14-18); INSTRUMENT SERIAL # 8087; METHEMOGLOBIN 0.3 % (0-3); O2 CONTENT 18.4 VOL% (18-24); PCO2 (CO2 TENSION) 46 MMHG (35-45); PO2 (O2 TENSION) 61 MMHG (79-93); SAMPLE Arterial; pH 7.36 (7.37-7.43)
[2016-09-28 03:47] LABS: LACTATE 1.9 MMOL/L (0.3-2.4)
[2016-09-28] MEDS ORDERED: *UNABLE3 (06:23)
[2016-09-28 10:07] LABS: PHOSPHORUS, SERUM 3.4 MG/DL (2.5-4.5)
[2016-09-28 10:11] LABS: LACTATE 3.8 MMOL/L (0.3-2.4)
[2016-09-28 10:47] LABS: PROCALCITONIN <0.05 ng/mL (<0.5)
[2016-09-28 18:25] LABS: BE (BASE EXCESS) 0.1 MEQ/L (0 +/- 2.5); CARBOXYHEMOGLOBIN 0.8 % (0-3); HCO3 (ACTUAL BICARBONATE) 23.9 MEQ/L (23-27); HEMOBLOGIN CONTENT 13.3 G/DL (14-18); INSTRUMENT SERIAL # 8083; METHEMOGLOBIN 0.4 % (0-3); O2 CONTENT 17.6 VOL% (18-24); PCO2 (CO2 TENSION) 36 MMHG (35-45); PO2 (O2 TENSION) 74 MMHG (79-93); SAMPLE Arterial; pH 7.44 (7.37-7.43)
[2016-09-28 18:26] LABS: ALLENS TEST Pos
[2016-09-29 06:57] LABS: BASOPHILS 0 %; EOSINOPHILS 0 %; HEMOGLOBIN 12.2 g/dL (13.6-17.8); IMMATURE GRANULOCYTES 0.4 %; LYMPHOCYTES 5.4 %; LYMPHOCYTES ABSOLUTE 1.22 10/3/uL (0.67-4.30); MEAN CORPUS HGB CONC 34.9 g/dL (32.0-36.0); MEAN CORPUSCULAR HEMOGLOB 32.2 pg (26.0-34.0); MEAN CORPUSCULAR VOLUME 92.3 fL (80-100); MEAN PLATELET VOLUME 11.4 fL (9.2-13.0); MONOCYTES 5.8 %; NEUTROPHILS 88.4 %; PLATELET COUNT 251 10/3/uL (150-400); RBC DISTRIBUTION WIDTH 16.9 % (12.0-16.0); RED CELL COUNT 3.79 10/6/uL (4.7-6.1); WHITE BLOOD CELLS 22.4 10/3/uL (4.5-10.5)
[2016-09-29 06:58] LABS: MANUAL DIFF NO %
[2016-09-29 07:09] LABS: A/G RATIO 1.2 (0.7-1.9); ALKALINE PHOSPHATASE 65 U/L (45-117); CALCIUM, SERUM 8.7 MG/DL (8.5-10.4); CHLORIDE, SERUM 111 MMOL/L (96-112); CO2 (CARBON DIOXIDE) 25 MMOL/L (24-34); CREATININE 1.28 MG/DL (0.70-1.30); GFR AFRICAN AMERICAN 61 ML/MIN (>=60); GFR NON AFRICAN AMERICAN 53 ML/MIN (>=60); GLUCOSE, SERUM 108 MG/DL (60-99); PHOSPHORUS, SERUM 2.9 MG/DL (2.5-4.5); POTASSIUM, SERUM 4.3 MMOL/L (3.5-5.3); SGOT(AST) 14 U/L (5-40); SGPT(ALT) 12 U/L (5-65); SODIUM, SERUM 143 MMOL/L (135-148); TOTAL BILIRUBIN 0.9 MG/DL (0-1.2); TOTAL PROTEIN 5.6 G/DL (6.0-8.5)
[2016-09-29 07:10] LABS: BUN (BLOOD UREA NITROGEN) 25 MG/DL (6-23); GLOBULIN 2.6 G/DL (2.5-4.1)
[2016-09-29] MEDS ORDERED: ZYRTEC ALLGY10 MG PO (11:45)
[2016-09-29] MEDS ORDERED: ATROVENTUD INH (11:45)
[2016-09-29] MEDS ORDERED: ASAB PO (11:45)
[2016-09-29] MEDS ORDERED: DULERA 200 MCG/13 GM INH (11:45)
[2016-09-29] MEDS ORDERED: PROAIR HFA INH (11:45)
[2016-09-29] MEDS ORDERED: DUONEB INH (11:45)
[2016-09-29] MEDS ORDERED: REMERON30 MG PO (11:45)
[2016-09-29 14:32] LABS: ASCORBIC ACID (UR NOT ORDER) NEG (NEG); BILIRUBIN, URINE NEGATIVE (NEG); KETONE, URINE NEGATIVE (NEG); LEUKOCYTE ESTERASE(NOT OR NEG (NEG); WBC (NOT ORDERED) (RFLEX) < 1 (0-5)
[2016-09-30 07:09] LABS: BASOPHILS 0 %; EOSINOPHILS 0.3 %; EOSINOPHILS ABSOLUTE 0.04 10/3/uL (0.0-0.53); HEMATOCRIT 36.3 % (40.0-51.0); HEMOGLOBIN 12.7 g/dL (13.6-17.8); IMMATURE GRANULOCYTES 0.3 %; IMMATURE GRANULOCYTES ABSOLUTE 0.04 10/3/uL (0.0-0.11); LYMPHOCYTES 13.1 %; LYMPHOCYTES ABSOLUTE 2.01 10/3/uL (0.67-4.30); MEAN CORPUSCULAR HEMOGLOB 32.5 pg (26.0-34.0); MEAN CORPUSCULAR VOLUME 92.8 fL (80-100); MONOCYTES 6.2 %; MONOCYTES ABSOLUTE 0.96 10/3/uL (0.21-1.20); NEUTROPHILS 80.1 %; NEUTROPHILS ABSOLUTE 12.35 10/3/uL (2.02-8.40); PLATELET COUNT 246 10/3/uL (150-400); RBC DISTRIBUTION WIDTH 17.3 % (12.0-16.0); RED CELL COUNT 3.91 10/6/uL (4.7-6.1); WHITE BLOOD CELLS 15.4 10/3/uL (4.5-10.5)
[2016-09-30 07:10] LABS: MANUAL DIFF NO %
[2016-09-30 07:20] LABS: BUN (BLOOD UREA NITROGEN) 23 MG/DL (6-23); CHLORIDE, SERUM 111 MMOL/L (96-112); CO2 (CARBON DIOXIDE) 28 MMOL/L (24-34); CREATININE 1.24 MG/DL (0.70-1.30); GFR AFRICAN AMERICAN 64 ML/MIN (>=60); GFR NON AFRICAN AMERICAN 55 ML/MIN (>=60); POTASSIUM, SERUM 3.5 MMOL/L (3.5-5.3); SODIUM, SERUM 145 MMOL/L (135-148)
[2016-09-30 07:21] LABS: GLUCOSE, SERUM 83 MG/DL (60-99)
[2016-09-30] MEDS ORDERED: ZITHROMAX500 MG PO (13:05)
[2016-09-30] MEDS ORDERED: P20 PO (13:07)
== END 2016-09-30 14:22 | disposition home health service (06) ==
LOC: ER 00:36 → 4EA 06:31
PROVIDERS: Emergency Medicine; Internal Medicine; Specialist
DX: R06.02 Shortness of breath (principal); J44.1 Chronic obstructive pulmonary disease with (acute) exacerbation; D72.829 Elevated white blood cell count, unspecified; I25.810 Atherosclerosis of coronary artery bypass graft(s) without angina pectoris; Z72.0 Tobacco use; J96.01 Acute respiratory failure with hypoxia; F03.90 Unspecified dementia, unspecified severity, without behavioral disturbance, psychotic disturbance, mood disturbance, and anxiety
CPT/HCPCS: 36600; 71010; 80048; 80053; 81001; 82805; 83605; 83735; 84100; 84145; 85025; 87040; 87449; 93005; 94640; 94644; 96372; 96374; 96375; 96376; 97161-GP; 99285; A9270-GY; G0378; J0456; J2930; J3486